=== PATIENT | female | born 1990 | race Two or more races ===

== ENCOUNTER 2019-06-17 23:18 | Emergency (ER) | payer MEDICAID, OTHER ==
[~2019-06-17] VITALS: Ht 175.3 cm; Wt 61.2 kg
--- NOTE | 2019-06-17 23:30 | NUR ---
PT BIBSELF C/O COUGH W/ CONGESTION X 4 DAYS, WAS DIAGNOSED WITH BRONCHITIS AT [facility]. PT AXO4. RESPIRATION EVEN AND UNLABORED. 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 PENDING EVAL FROM ER .
[2019-06-18] MEDS ORDERED: ALBUTEROL FS 2.5 MG/3 ML VIAL.NEB ONE (00:53)
--- NOTE | 2019-06-18 00:54 | NUR ---
RT AT BEDSIDE.
[2019-06-18] MEDS ORDERED: ALBUTEROL FS 2.5 MG/3 ML VIAL.NEB NEB ONE (01:00)
--- NOTE | 2019-06-18 02:00 | NUR ---
Patient discharged to home in stable condition. Written and verbal after care instructions given. Patient verbalizes understanding of instruction.
[2019-06-18 02:01] VITALS: BP 120/71
== END 2019-06-18 02:02 | disposition home or self-care (01) ==
LOC: ER 23:21
DX: J45.909 Unspecified asthma, uncomplicated (principal); Z88.6 Allergy status to analgesic agent
CPT/HCPCS: 71045-TC

== ENCOUNTER 2019-07-02 19:20 | Emergency (ER) | payer MEDICAID ==
[~2019-07-02] VITALS: Ht 175.3 cm; Wt 59.0 kg
[2019-07-02 19:57] VITALS: BP 119/81
--- NOTE | 2019-07-02 19:57 | NUR ---
YANIRA C/C L SIDED HEADACHE X1HR, -N/V, "I SEE GREEN COLOR SPOTS", MINOR DIZZINESS, TO ER BED 3, MD AT BEDISED FOR EVAL.
[2019-07-02] MEDS ORDERED: METOCLOPRAMIDE HCL 10 MG TABLET ONE (20:07)
[2019-07-02] MEDS ORDERED: ACETAMINOPHEN 325 MG TABLET ONE (20:08)
[2019-07-02] MEDS ORDERED: ACETAMINOPHEN 325 MG TABLET PO ONE (20:30)
[2019-07-02] MEDS ORDERED: METOCLOPRAMIDE HCL 10 MG TABLET PO ONE (20:30)
== END 2019-07-02 20:16 | disposition home or self-care (01) ==
LOC: ER 19:20
DX: R51 Headache (principal); J45.909 Unspecified asthma, uncomplicated; Z88.6 Allergy status to analgesic agent; Z60.2 Problems related to living alone
CPT/HCPCS: 99283; J8597